=== PATIENT | male | born 1955 | race Caucasian/White ===

== ENCOUNTER → 2016-07-06 | Outpatient (CLI) | payer MEDICARE | LOC: BHSO 15:38 | DX: F33.42 Major depressive disorder, recurrent, in full remission (principal) ==

== ENCOUNTER → 2016-10-03 | Outpatient (CLI) | payer MEDICARE | LOC: BHSO 15:42 | DX: F31.74 Bipolar disorder, in full remission, most recent episode manic (principal) ==